=== PATIENT | male | born 1970 | race Caucasian/White ===

== ENCOUNTER 2022-05-12 10:05 | Outpatient (CLI) | payer BC, SELFPAY ==
[2022-05-12 17:32] LABS: Chloride* 108 mmol/L (96-114); Potassium* 4.8 mmol/L (3.6-5.1); Sodium* 141 mmol/L (135-149)
[2022-05-12 17:34] LABS: Cholesterol* 287 mg/dL (90-199)
[2022-05-12 17:35] LABS: Blood Urea Nitrogen* 29 mg/dL (7-30); Calcium* 10.5 mg/dL (8.4-10.6); Carbon Dioxide* 25 mmol/L (20-32); Creatinine* 1.3 mg/dL (0.5-1.5); Estimated Glomerular Filt Rate 66 ml/min; Glucose* 89 mg/dL (60-115); Phosphorus* 2.2 mg/dL (2.5-4.5); Triglycerides* 137 mg/dL (40-149)
[2022-05-12 17:36] LABS: HDL Cholesterol* 88 mg/dL (>=40); LDL Cholesterol Calculated 172 mg/dL (<100)
[2022-05-12 18:06] LABS: PSA Screen* 0.87 ng/mL (0.10-4.00)
== END 2022-05-12 10:06 | disposition home or self-care (01) ==
PROVIDERS: PCP Family Medicine; Visit Provider Family Medicine
DX: E78.5 Hyperlipidemia, unspecified (principal); I10 Essential (primary) hypertension; E83.31 Familial hypophosphatemia; M90.80 Osteopathy in diseases classified elsewhere, unspecified site; Z12.5 Encounter for screening for malignant neoplasm of prostate; M10.9 Gout, unspecified
CPT/HCPCS: 80048; 80061; 84100; 84153; 87086

== ENCOUNTER 2023-05-11 13:50 | Outpatient (CLI) | payer BC, SELFPAY | END 2023-05-11 13:51 | disposition home or self-care (01) | PROVIDERS: PCP Family Medicine; Visit Provider Family Medicine | DX: E78.5 Hyperlipidemia, unspecified (principal); Z12.5 Encounter for screening for malignant neoplasm of prostate; Z80.42 Family history of malignant neoplasm of prostate | CPT/HCPCS: 80061; 84100; G0103 ==

== ENCOUNTER 2024-04-11 11:34 | Outpatient (CLI) | payer BC, SELFPAY | END 2024-04-11 11:35 | disposition home or self-care (01) | PROVIDERS: PCP Family Medicine; Visit Provider Family Medicine | DX: E83.31 Familial hypophosphatemia (principal); I10 Essential (primary) hypertension; Z12.5 Encounter for screening for malignant neoplasm of prostate | CPT/HCPCS: 84100; G0103 ==

== ENCOUNTER 2025-03-27 13:58 | Outpatient (CLI) | payer BC, SELFPAY | END 2025-03-27 13:59 | disposition home or self-care (01) | PROVIDERS: PCP Family Medicine; Visit Provider Family Medicine | DX: I10 Essential (primary) hypertension (principal); E83.31 Familial hypophosphatemia; Z12.5 Encounter for screening for malignant neoplasm of prostate | CPT/HCPCS: 80048; 84100; G0103 ==